=== PATIENT | male | born 1950 | race Caucasian/White ===

== ENCOUNTER 2017-08-15 14:15 | Inpatient (IN) | END 2017-08-20 18:13 | disposition home or self-care (01) | DRG 197 ==

== ENCOUNTER 2018-01-14 09:37 | Day surgery (SDC) | END 2018-01-14 14:31 | disposition home or self-care (01) ==

== ENCOUNTER 2018-07-05 02:39 | Inpatient (IN) | payer BC ==
[~2018-07-05] VITALS: Ht 170.2 cm; Wt 78.0 kg
[2018-07-05] VITALS (7 sets, daily range): BP systolic 96–130; BP diastolic 54–63; PULSE 60–96; RESP 17–20; Ht 170.2 cm; Wt 78.0 kg
[~2018-07-05 02:39] MED LIST: ESOMEPRAZOLE; FERROUS SULFATE; GABAPENTIN; LOSA1TAB25 PO; TAMSULOSIN
[2018-07-05] MEDS ORDERED: ACETAMINOPHEN 325 MG TAB PO STA (02:51)
[2018-07-05] MEDS ORDERED: SODIUM CHLORIDE 0.9% 1L BAG IV* STA (02:51)
--- NOTE | 2018-07-05 05:27 | ERD ---
ER Documentation Chief Complaint Chief Complaint bib [id number] c/o fever/body aches/chills x 1 day, also c/o painful urination HPI 60-minute male brought in by rescue fevers body aches and chills for 1 day. Also complains of painful urination for the past 3 days. Also complains of mild flank pain times 2 days. Pain is mild to moderate intensity. Alternating fevers and chills. Mild nausea but no vomiting. No other current complaints. ROS All systems reviewed and are negative except as per history of present illness. Medications Home Meds Reported Medications [Tamsulosin] No Conflict Check 01/14/18 [Esomeprazole] No Conflict Check 01/14/18 [Ferrous Sulfate] No Conflict Check 01/14/18 [Gabapentin] No Conflict Check 01/14/18 Losartan-Hydrochlorothiazide (Losartan-HCTZ) 100-25 Mg Tab, 1 TAB PO DAILY, TAB 08/15/17 Allergies Allergies: Coded Allergies: No Known Allergy (Unverified , 08/15/17) PMhx/Soc History of Surgery: No Anesthesia Reaction: No Hx Neurological Disorder: Yes (NEUROPATHY) Hx Respiratory Disorders: No Hx Cardiac Disorders: Yes (HTN) Hx Psychiatric Problems: No Hx Miscellaneous Medical Probl: No Hx Alcohol Use: No Hx Substance Use: No Hx Tobacco Use: No Physical Exam Vitals Vital Signs Date Temp Pulse Resp B/P (MAP) Pulse Ox O2 O2 Flow FiO2 Time Delivery Rate 07/05/18 100.1 74 19 107/52 93 Nasal 4.0 04:17 (70) Cannula 07/05/18 100.1 110 32 127/59 93 Nasal 4.0 03:25 (81) Cannula 07/05/18 Nasal 2 03:25 Cannula 07/05/18 100.1 03:20 07/05/18 102.2 113 20 91/52 (65) 94 02:48 Physical Exam Const: No acute distress Head: Atraumatic Eyes: Normal Conjunctiva ENT: Normal External Ears, Nose and Mouth. Neck: Full range of motion. No meningismus. Resp: Clear to auscultation bilaterally Cardio: Regular rate and rhythm, no murmurs Abd: Soft, non tender, non distended. Normal bowel sounds Skin: No petechiae or rashes Back: No midline or flank tenderness Ext: No cyanosis, or edema Neur: Awake and alert Psych: Normal Mood and Affect Result Diagram: 07/05/1830907/05/18 0310 Results 24 hrs Laboratory Tests Test 07/05/18 03:10 07/05/18 03:17 07/05/18 04:40 White Blood Count 16.0 10^3/ul Red Blood Count 4.77 10^6/ul Hemoglobin 14.6 g/dl Hematocrit 41.7 % Mean Corpuscular Volume 87.4 fl Mean Corpuscular Hemoglobin 30.6 pg Mean Corpuscular 35.0 g/dl Hemoglobin Concent Red Cell Distribution Width 11.4 % Platelet Count 198 10^3/UL Mean Platelet Volume 10.6 fl Immature Granulocytes % 1.000 % Neutrophils % 82.1 % Lymphocytes % 11.7 % Monocytes % 4.7 % Eosinophils % 0.1 % Basophils % 0.4 % Nucleated Red Blood Cells % 0.0 /100WBC Immature Granulocytes # 0.160 10^3/ul Neutrophils # 13.2 10^3/ul Lymphocytes # 1.9 10^3/ul Monocytes # 0.8 10^3/ul Eosinophils # 0.0 10^3/ul Basophils # 0.1 10^3/ul Nucleated Red Blood Cells # 0.0 10^3/ul Prothrombin Time 14.4 Sec Prothrombin Time Ratio 1.1 INR International 1.11 Normalized Ratio Activated Partial Thromboplast 33.0 Sec Time Sodium Level 136 mmol/L Potassium Level 3.3 mmol/L Chloride Level 98 mmol/L Carbon Dioxide Level 24 mmol/L Anion Gap 14 Blood Urea Nitrogen 15 mg/dl Creatinine 1.35 mg/dl Est Glomerular Filtrat 53 mL/min Rate mL/min Glucose Level 139 mg/dl Calcium Level 9.3 mg/dl Total Bilirubin 1.0 mg/dl Direct Bilirubin 0.00 mg/dl Indirect Bilirubin 1.0 mg/dl Aspartate Amino 30 IU/L Transf (AST/SGOT) Alanine 13 IU/L Aminotransferase (ALT/SGPT) Alkaline Phosphatase 124 IU/L Troponin I < 0.012 ng/ml Total Protein 8.6 g/dl Albumin 4.5 g/dl Globulin 4.10 g/dl Albumin/Globulin Ratio 1.09 POC Venous Lactate 1.9 mmol/L Urine Color EYAL Urine Clarity CLOUDY Urine pH 6.0 Urine Specific [place] 1.016 Urine Ketones NEGATIVE mg/dL Urine Nitrite NEGATIVE mg/dL Urine Bilirubin NEGATIVE mg/dL Urine Urobilinogen 2+ mg/dL Urine Leukocyte Esterase 2+ Kristina/ul Urine Microscopic RBC 12 /HPF Urine Microscopic WBC 143 /HPF Urine Bacteria MANY /HPF Urine Mucus FEW /HPF Urine Hemoglobin 2+ mg/dL Urine Glucose NEGATIVE mg/dL Urine Total Protein 2+ mg/dl Current Medications Medications Dose Sig/Ankita Start Time Status Last (Trade) Ordered Route PRN Stop Time Admin Dose Reason Admin Sodium 2,330 ml BOLUS OVER 2 07/05/18 DC 07/05/18 Chloride HOURS STAT 02:51 03:20 (NS) IV* 07/05/18 02:53 650 mg ONCE STAT 07/05/18 DC 07/05/18 Acetaminophen PO 02:51 03:20 (Tylenol 07/05/18 02:53 Tab) Ceftriaxone 50 ml @ ONCE ONCE 07/05/18 Sodium 100 mls/hr IVPB 05:30 07/05/18 05:59 Procedures/MDM EKG: Rate/Rhythm: [Normal Sinus Rhythm] QRS, ST, T-waves: [No changes consistent w/ acute ischemia] Impression: [No evidence of ischemia or arrhythmia] Chest X-ray 1V Interpreted by me: Soft Tissue: No acute abnormalities Bones: No acute abnormalities Mediastinum/Cardiac Silhouette/Lungs: [No acute abnormalities] Medical decision makin 8-year-old female with multiple early pyelonephritis. At this point patient will be admitted to Dr. Diehl. Early sepsis cannot be excluded. Initial lactic acid was negative, however patient was given 30/kg fluid bolus and started on broad-spectrum antibiotics Departure Diagnosis: Primary Impression: Pyelonephritis Condition: Serious OLGA FRY Jul 05, 2018 05:27
[2018-07-05] MEDS ORDERED: CEFTRIAXONE 1 GM/50 ML (PMX) 50 ML IVPB ONE (05:30)
[2018-07-05] MEDS ORDERED: NACL 0.9% 3 ML SYG IV SCH (06:00)
[2018-07-05] MEDS ORDERED: BISACODYL (EC) 5 MG TAB PO PRN (06:00)
[2018-07-05] MEDS ORDERED: ONDANSETRON 4 MG INJ IV PRN (06:00)
[2018-07-05] MEDS ORDERED: DOCUSATE SODIUM 100 MG CAP PO PRN (06:00)
[2018-07-05] MEDS ORDERED: TAMS0.4C2 PO (07:22)
[2018-07-05] MEDS ORDERED: RANI300T PO (07:22)
[2018-07-05] MEDS ORDERED: GABA300C16 PO (07:22)
[2018-07-05] MEDS ORDERED: OMEP40CA6 PO (07:22)
[2018-07-05] MEDS: ACETAMINOPHEN 325 MG TAB PO PRN ×2 (12:36→20:25)
--- NOTE | 2018-07-05 19:03 | HP ---
DATE OF ADMISSION: 07/05/2018 TIME OF EVALUATION: About 9:00 a.m. PRESENTING COMPLAINT: Fever, generalized ache and dysuria. HISTORY OF PRESENTING COMPLAINT: The patient is not a very good historian and so history is unclear at this time. This patient presents with generalized aches, fevers and some dysuria. Denies hematur ia. Denies nausea, vomiting. No hematemesis. There has been no passing out episodes. No headache, no extremity swelling. PAST MEDICAL HISTORY: Positive for: 1. High blood pressure. 2. GERD. 3. Chronic neuropathy. 4. BPH. 5. History of lung mass that pathology in this hospital showed that it was coccidioidomycosis infect ion; however, it is unclear if patient was treated for it. ALLERGY HISTORY: HE HAS KNOWN DRUG ALLERGIES. SOCIAL HISTORY: The patient does drink alcohol occasionally. Denies tobacco or illicit drug use. FAMILY HISTORY: Noncontributory. REVIEW OF SYSTEMS: A 12-point review of system was done. Pertinent findings are as noted in the HPI . PHYSICAL EXAMINATION VITAL SIGNS: Temperature maximum has been 102.2 on arrival, pulse when he came he was tachycardic, b ut at the time of review, tachycardia resolved, blood pressure 101/49 and respiratory rate 18, satura tions 95% on room air. GENERAL: A 68-year-old male currently still ill-looking, but sleeping comfortably, in no distress. HEENT: Head is normocephalic. Pupils are equal, round and reactive. Mucous membranes are slightly dry. NECK: Supple without adenopathy or JVD. CHEST: Clear without wheezing or crackles. CARDIOVASCULAR: S1 and S2. No added sounds or murmurs. ABDOMEN: Soft, nontender, normoactive bowel sounds. There is no flank tenderness. SKIN: Devoid of rash or jaundice. EXTREMITIES: Negative for edema. NEUROLOGIC: Negative for focal deficits. LABORATORY VALUES: Urinalysis was done today with many bacteria, 3 red blood cells, 2+ esterase, harry udy urine. He has a leukocytosis of 16,000. Coag profile was unremarkable. His creatinine is high at 1.35. Alkaline phosphatase is entirely elevated. Potassium is low at 3.3. Lactic acid is normal though. IMAGING: He had a chest x-ray that did not show any acute pulmonary changes, but he did have a 2.3 c m pulmonary nodule that was compared to a PET scan that was done 06/30/2018 and did show activity. T his is notable again with CT of the abdomen. Also noted on the CT was bibasilar fibrosis and atelect asis and fatty liver. ASSESSMENT: A 68-year-old male who is being admitted for after he presented with fever and gen eralized aches and dysuria. 1. Sepsis secondary to #2. 2. Urinary tract infection without pyelonephritis. 3. Acute renal insufficiency. 4. Hypertension with borderline hypotension secondary to sepsis. 5. Chronic neuropathy. 6. Gastroesophageal reflux disease. 7. Benign prostatic hypertrophy. 8. Constipation. 9. Left lower lobe mass which has reduced in size as compared to CT scan of the chest that was done in 07/2017, which at that time pathology had confirmed presence of coccidioidomycosis infection. It is unclear if patient was treated. This may represent a recurrence or incomplete treatment. PLAN: We have to get pulmonary and infectious disease consultation again for his lung mass treatment . In the interim though, we will empiric therapy for his sepsis and UTI with ceftriaxone. Follow up cultures. Continue IV fluids for renal failure. Hold on home antihypertensives for now. We will r esume as indicated. Continue to trend labs. Follow up urine and blood cultures. Further interventi ons will depend on his clinical course. For prophylaxis, he will be started on Lovenox and PPI thera py. Dictated By: ECHO LOPEZ MD BA/NTS Conf#: [id number] DID#: [id number] CC: AHSAN OH MD;*EndCC*
[2018-07-05] MEDS ORDERED: SUMATRIPTAN 6 MG/0.5 ML INJ SC ONE (23:00)
[2018-07-06] VITALS (12 sets, daily range): BP systolic 109–144; BP diastolic 61–67; PULSE 48–63; RESP 16–20
[2018-07-06] MEDS: CEFTRIAXONE 2 GM/50 ML (PMX) 50 ML IVPB SCH (04:29)
[2018-07-06] MEDS: DOCUSATE SODIUM 100 MG CAP PO SCH ×2 (05:57→17:44)
[2018-07-06] MEDS: PANTOPRAZOLE (EC) 40 MG TAB PO SCH (05:57)
[2018-07-06] MEDS: ENOXAPARIN 40 MG/0.4 ML SYG SC SCH (09:38)
[2018-07-06] MEDS ORDERED: POTASSIUM CHLORIDE (SR) 20 MEQ TAB PO STA (12:28)
[2018-07-06] MEDS: FLUCONAZOLE 200 MG TAB PO SCH ×2 (14:01→22:49)
--- NOTE | 2018-07-06 14:07 | CONS ---
DATE OF ADMISSION: 07/06/2018 DATE OF CONSULTATION: 07/06/2018 TYPE OF CONSULTATION: Infectious disease. REASON FOR CONSULTATION: Antibiotic management. HISTORY OF PRESENT ILLNESS: Marvin Bashir is a 68-year-old male who was brought in with fe evette, body aches, chills for 1 day and pain on urination. PAST MEDICAL HISTORY: His past problems include: 1. Hypertension. 2. Peripheral neuropathy. Acutely, the patient complains of pain on urination, 3 days prior to admission with mid flank pain x2 days. The pain is mild to moderately intense, alternating with fever and chills. He has mild nause a and vomiting. No other current complaints. PAST MEDICAL HISTORY: As outlined. FAMILY HISTORY: Noncontributory. SOCIAL HISTORY: Does not smoke, drink or abuse drugs. LABORATORY DATA: On admission, his white count of 16,000, H and H of 14.6/41.7, platelet count of 19 8,000. BUN and creatinine 15/1.35. Random glucose of 139. His potassium is 3.31. PHYSICAL EXAMINATION: GENERAL: This is a well-developed, well-nourished male who is alert, responsive, in no acute distres s. VITAL SIGNS: Stable. His temperature was up to 102.2. SKIN: Without generalized rash. HEENT: Within normal limits. NECK: Supple. LYMPH NODES: None palpable. CHEST: Decreased breath sounds at the bases. HEART: Without murmur or gallop. ABDOMEN: Soft, nontender, without organosplenomegaly or masses. He has no flank tenderness. RECTAL AND GENITAL: Deferred. NEUROLOGIC: No focal neurological abnormality. His urine shows 2+ leukocyte esterase, 142 white tal ls per high powered field. The patient was placed on ceftriaxone. Chest x-ray showed no acute abnormalities. Patient was diagn osed with pyelonephritis. His urine shows gram-negative rods at 24 hours. The blood cultures are ne gative. HOSPITAL COURSE: CT scan of the abdomen and pelvis shows a 3.1 x 2.6 cm in superior left lower lobe. Positive mass. Nonspecific mild mesenteric stranding of the anterior lateral right mid to lower ab domen. Decreased hepatic attenuations likely on the basis of hepatic steatosis, bibasilar fibrosis a nd dependent subsegmental atelectasis. Patient noted to have hypertension, GERD, chronic neuropathy, BPH, history of lung mass as the pathology in this hospital showed coccidioidomycosis infection. It is unclear if the patient was treated for this. Patient is septic secondary to his urinary tract in fection, but I will follow up the cocci infection. I would repeat cocci serology and start him back on fluconazole. Cocci antibodies were ordered. Dictated By: TYLER VO MD, JD/NTS Conf#: [id number] DID#: [id number] CC: AHSAN HO MD;*EndCC*
--- NOTE | 2018-07-06 15:58 | PN ---
Date/Time of Note Date/Time of Note DATE: 07/06/18 TIME: 15:46 Assessment/Plan VTE Prophylaxis Risk score (from Ns)>0 risk: 4 SCD applied (from Ns): Yes Pharmacological prophylaxis: LMWH Lines/Catheters IV Catheter Type (from Nrs): Saline Lock Assessment/Plan Assessment/Plan A 68-year-old male who is being admitted for management after he presented with fever and generalized aches and dysuria. 1. Sepsis secondary to #2: -improving 2. Urinary tract infection without pyelonephritis. -cultures growing GNR 3. Acute renal insufficiency. -improved, continue hydration 4. Hypertension with borderline hypotension secondary to sepsis. -continue to hold home meds for now -PRN hydralzine only 5. Left lower lobe mass -has reduced in size as compared to CT scan of the chest that was done in 07/2017, -2018 pathology had confirmed presence of coccidioidomycosis infection. -son thinks patient was treated, but he's not sure -ID and pulm consult 6. Gastroesophageal reflux disease. -continue home gail 7. Benign prostatic hypertrophy. -home meds 8. Constipation. -stool softeners and miralax 9. Chronic neuropathy. -continue home gabapentin 10. Bradycardia -asymptomatic -monitor on tele -complete ACS r/o -2D echo -avoid AV madhuri blocking agents -EKG 11. Hypokalemia -replete, chck mag levels as well 12. Dyslipidemia -low HDL and mildly high total cholesterol -statin tx, low chol, low fat diet 13. cough, Bibasilar pulm fibrosis on CT abd - will repeat chest CT with IV contrast 14. Fatty liver PLAN: continue abx, ID consult Pulm consult remain on tele for now 2/2 bradycardia, 2D echo Result Diagram: 07/06/18 0522 07/06/18 0522 Results 24hrs Laboratory Tests Test 07/06/18 05:22 White Blood Count 14.1 H Red Blood Count 3.98 L Hemoglobin 12.3 L Hematocrit 35.5 L Mean Corpuscular Volume 89.2 Mean Corpuscular Hemoglobin 30.9 Mean Corpuscular Hemoglobin Concent 34.6 Red Cell Distribution Width 11.7 Platelet Count 158 # Mean Platelet Volume 10.8 H Immature Granulocytes % 1.100 H Neutrophils % 77.8 H Lymphocytes % 8.0 L Monocytes % 10.9 Eosinophils % 1.8 Basophils % 0.4 Nucleated Red Blood Cells % 0.0 Immature Granulocytes # 0.160 H Neutrophils # 10.9 H Lymphocytes # 1.1 Monocytes # 1.5 H Eosinophils # 0.3 Basophils # 0.1 Nucleated Red Blood Cells # 0.0 Sodium Level 140 Potassium Level 3.3 L Chloride Level 103 Carbon Dioxide Level 26 Anion Gap 11 Blood Urea Nitrogen 12 Creatinine 0.73 Est Glomerular Filtrat Rate mL/min > 60 Glucose Level 118 Hemoglobin A1c 5.5 Calcium Level 8.4 Magnesium Level 2.2 Total Bilirubin 0.1 L Direct Bilirubin 0.00 Indirect Bilirubin 0.1 Aspartate Amino Transf (AST/SGOT) 24 Alanine Aminotransferase (ALT/SGPT) 24 Alkaline Phosphatase 88 Total Protein 6.8 # Albumin 3.2 #L Globulin 3.60 H Albumin/Globulin Ratio 0.88 Triglycerides Level 152 H Cholesterol Level 110 LDL Cholesterol, Calculated 61 HDL Cholesterol 19 L Cholesterol/HDL Ratio 5.7 Thyroid Stimulating Hormone (TSH) 2.470 Subjective 24 Hr Interval Summary Free Text/Dictation feels better but still very lethargic c/o productive cough x 2 weeks Exam/Review of Systems Vital Signs Vitals Vital Signs Date Temp Pulse Resp B/P (MAP) Pulse Ox O2 O2 Flow FiO2 Time Delivery Rate 07/06/18 56 12:01 07/06/18 98.9 16 109/62 94 11:49 (78) 07/06/18 Nasal 2.0 07:58 Cannula 07/06/18 27 02:14 Intake and Output 07/05/18 07/05/18 07/06/18 1515:00 23:00 07:00 IntakeIntake Total 750 ml 250 ml OutputOutput Total 800 ml BalanceBalance 750 ml -550 ml Medications Medications Current Medications IV Flush (NS 3 ml) 3 ml PER PROTOCOL IV ; Start 07/05/18 at 06:00 Ondansetron HCl (Zofran Inj) 4 mg Q6H PRN IV NAUSEA AND/OR VOMITING Last administered on 07/05/18at 12:48; Admin Dose 4 MG; Start 07/05/18 at 06:00 Acetaminophen (Tylenol Tab) 650 mg Q6H PRN PO PAIN LEVEL 1-3 OR FEVER Last administered on 07/05/18at 20:25; Admin Dose 650 MG; Start 07/05/18 at 06:00 Bisacodyl (Dulcolax) 5 mg DAILY PRN PO CONSTIPATION; Start 07/05/18 at 06:00 Ceftriaxone Sodium 50 ml @ 100 mls/hr Q24H IVPB Last administered on 07/06/18at 04:29; Admin Dose 100 MLS/HR; Start 07/06/18 at 04:00 Influenza Virus Vaccine Quadrival (Fluzone) 0.5 ml ONCE ONCE IM* ; Start 07/08/18 at 10:00; Stop 07/08/18 at 10:01 Docusate Sodium (Colace) 100 mg Q12H PO Last administered on 07/06/18at 05:57; Admin Dose 100 MG; Start 07/06/18 at 06:00 Enoxaparin Sodium (Lovenox) 40 mg DAILY SC Last administered on 07/06/18at 09:38; Admin Dose 40 MG; Start 07/06/18 at 09:00 Pantoprazole (Protonix Tab) 40 mg DAILY@06 PO Last administered on 07/06/18at 05:57; Admin Dose 40 MG; Start 07/06/18 at 06:00 Fluconazole (Diflucan) 400 mg BID PO Last administered on 07/06/18at 14:01; Admin Dose 400 MG; Start 07/06/18 at 14:00 ECHO LOPEZ Jul 06, 2018 15:56
[2018-07-06] MEDS ORDERED: SOD CHLORIDE 0.9% 1,000 ML IV SCH (16:00)
[2018-07-06] MEDS: ACETAMINOPHEN 325 MG TAB PO PRN (19:39)
--- NOTE | 2018-07-06 19:55 | RADRPT ---
Vent Rate: 58 bpm RR Interval: 0 msec AL Interval: 152 msec QRS Duration: 96 msec QT Interval: 424 msec QTC Interval: 416 msec P-R-T [place]: 40 - 4 - 35 degrees Sinus bradycardia Otherwise normal ECG Electronically Signed By: Kavon Cook [id number]
[2018-07-06] MEDS ORDERED: GUAIFENESIN/DM 5ML CUP PO PRN (23:00)
[2018-07-07] VITALS (10 sets, daily range): BP systolic 137–163; BP diastolic 66–73; PULSE 51–79; RESP 16–17
[2018-07-07] MEDS: CEFTRIAXONE 2 GM/50 ML (PMX) 50 ML IVPB SCH (04:40)
[2018-07-07] MEDS: DOCUSATE SODIUM 100 MG CAP PO SCH (06:09)
[2018-07-07] MEDS: PANTOPRAZOLE (EC) 40 MG TAB PO SCH (06:09)
[2018-07-07] MEDS ORDERED: IOHEXOL 300MG/ML 150 ML BTL ONE (07:45)
[2018-07-07] MEDS ORDERED: SOD CHLORIDE 0.9% 100 ML ONE (07:45)
[2018-07-07] MEDS: FLUCONAZOLE 200 MG TAB PO SCH (09:39)
[2018-07-07] MEDS: ENOXAPARIN 40 MG/0.4 ML SYG SC SCH (09:47)
--- NOTE | 2018-07-07 12:29 | CONS ---
DATE OF ADMISSION: 07/06/2018 DATE OF CONSULTATION: TYPE OF CONSULTATION: Pulmonary. REASON FOR CONSULTATION: Cough, shortness of breath. Thank you, Dr. Gardner, for this consultation. HISTORY OF PRESENT ILLNESS: This is a pleasant 68-year-old gentleman with history of lung mass PET p ositive treated for coccidioidomycosis came in with a 2-week history of fever, chills, cough. No hem optysis, hematemesis. No nausea, no vomiting, but did have significant leukocytosis. Chest x-ray de monstrating a 2.3 cm left lower lobe nodule with PET positive activity. CT abdomen and pelvis was al so performed which demonstrated a left lower lobe PET positive lesion, bibasilar fibrosis with subseg mental atelectasis. PAST MEDICAL HISTORY: As above. MEDICATIONS: Per chart. SOCIAL HISTORY: Nonsmoker, no alcohol, no history of drug use. FAMILY HISTORY: Noncontributory. REVIEW OF SYSTEMS: A 12-point review of systems was negative other than that mentioned above. PHYSICAL EXAMINATION: GENERAL: Well-nourished, well-developed gentleman, comfortable at rest, in no acute distress. VITAL SIGNS: Currently afebrile, temperature 98, pulse is 62, blood pressure 149/63, O2 saturation 9 6% on 2 liters nasal cannula. NECK: Supple. No JVD or lymphadenopathy. CARDIAC: S1, S2. No added sounds or murmurs. CHEST: Diminished air entry bilaterally. ABDOMEN: Soft, nontender. No guarding or rebound. EXTREMITIES: No cyanosis, clubbing or edema. NEUROLOGIC: Generalized weakness. No focal deficits. LABORATORY DATA: White count initially 16 then 8.4, hemoglobin 12.1, platelets within normal limits. IMPRESSION AND PLAN: 1. Likely resolving tracheobronchitis. 2. History of PET positive nodule. Workup for malignancy continues. 3. History of gastroesophageal reflux disease. The patient can: 1. Likely continue current antibiotics. We will transition to p.o. tomorrow. 2. Continue antibiotics for Escherichia coli urinary tract infection. 3. Anticipate discharge and follow up with me in the office with further evaluation of PET scan and lung nodule. Dictated By: JENI COWART MD SV/BRIDGER Conf#: [id number] DID#: [id number] CC: AHSAN HO MD;*[facility]*
--- NOTE | 2018-07-07 14:00 | CONS ---
Date/Time of Note Date/Time of Note DATE: 07/07/18 TIME: 14:00 Assessment/Plan Assessment/Plan Hospital Course No acute events per report patient is alert feels good denies pain no fevers overnight he has ongoing nausea, no vomiting WBC 8.4 platelets 181 neutrophils 69.4 BUN 13 creatinine 0.75 Antimicrobials Rocephin fluconazole Urine culture on admission grew E. coli CT abdomen and pelvis revealed 3.1 x 2.6 cm superior left lower lobe PET positive mass. Bibasilar fibrosis and dependent subsegmental atelectasis. Physical examination: Well-developed elderly man who is alert in no distress. Head atraumatic normocephalic sclera nonicteric neck is supple chest rise symmetrical breath sounds clear diminished bases. Heart: S1-S2 abdomen soft bowel sounds present extremities without cyanosis Assessment: 1. Sepsis, present on admission 2. Lung mass, reduced in size, patient had biopsy on previous admission that revealed no malignancy but questionable cocci 3. Urinary tract infection 4. Hypertension Plan: Patient is stable, pulmonary on case, he is on high-dose fluconazole, we can change Rocephin to ciprofloxacin or Levaquin. Await for final workup Result Diagram: 07/07/18 0421 07/07/18 0421 Results 24hrs Laboratory Tests Test 07/06/18 16:16 07/07/18 04:21 Magnesium Level 2.0 1.9 Creatine Kinase 75 62 Creatine Kinase Index 0.5 0.6 Creatinine Kinase MB (Mass) 0.41 0.37 Troponin I < 0.012 < 0.012 White Blood Count 8.4 # Red Blood Count 3.92 L Hemoglobin 12.1 L Hematocrit 34.7 L Mean Corpuscular Volume 88.5 Mean Corpuscular Hemoglobin 30.9 Mean Corpuscular Hemoglobin Concent 34.9 Red Cell Distribution Width 11.9 Platelet Count 181 Mean Platelet Volume 10.4 Immature Granulocytes % 0.900 H Neutrophils % 69.4 Lymphocytes % 12.1 L Monocytes % 13.5 H Eosinophils % 3.6 Basophils % 0.5 Nucleated Red Blood Cells % 0.0 Immature Granulocytes # 0.080 H Neutrophils # 5.9 Lymphocytes # 1.0 Monocytes # 1.1 H Eosinophils # 0.3 Basophils # 0.0 Nucleated Red Blood Cells # 0.0 Sodium Level 141 Potassium Level 3.6 Chloride Level 105 Carbon Dioxide Level 24 Anion Gap 12 Blood Urea Nitrogen 13 Creatinine 0.75 Est Glomerular Filtrat Rate mL/min > 60 Glucose Level 104 Calcium Level 8.4 Phosphorus Level 3.0 Consultation Date/Type/Reason Admit Date/Time Jul 06, 2018 at 09:43 Initial Consult Date Type of Consult id Exam/Review of Systems Vital Signs Vitals Vital Signs Date Temp Pulse Resp B/P (MAP) Pulse Ox O2 O2 Flow FiO2 Time Delivery Rate 07/07/18 56 12:34 07/07/18 98.3 16 143/68 98 11:38 (93) 07/07/18 Nasal 2.0 09:57 Cannula 07/06/18 27 02:14 Intake and Output 07/06/18 07/06/18 07/07/18 1515:00 23:00 07:00 IntakeIntake Total 04433 ml 450 ml OutputOutput Total 800 ml 1000 ml BalanceBalance 31599 ml -550 ml Medications Medications Current Medications IV Flush (NS 3 ml) 3 ml PER PROTOCOL IV ; Start 07/05/18 at 06:00 Ondansetron HCl (Zofran Inj) 4 mg Q6H PRN IV NAUSEA AND/OR VOMITING Last administered on 07/05/18at 12:48; Admin Dose 4 MG; Start 07/05/18 at 06:00 Acetaminophen (Tylenol Tab) 650 mg Q6H PRN PO PAIN LEVEL 1-3 OR FEVER Last administered on 07/06/18at 19:39; Admin Dose 650 MG; Start 07/05/18 at 06:00 Bisacodyl (Dulcolax) 5 mg DAILY PRN PO CONSTIPATION; Start 07/05/18 at 06:00 Ceftriaxone Sodium 50 ml @ 100 mls/hr Q24H IVPB Last administered on 07/07/18at 04:40; Admin Dose 100 MLS/HR; Start 07/06/18 at 04:00 Influenza Virus Vaccine Quadrival (Fluzone) 0.5 ml ONCE ONCE IM* ; Start 07/08/18 at 10:00; Stop 07/08/18 at 10:01 Docusate Sodium (Colace) 100 mg Q12H PO Last administered on 07/07/18at 06:09; Admin Dose 100 MG; Start 07/06/18 at 06:00 Enoxaparin Sodium (Lovenox) 40 mg DAILY SC Last administered on 07/07/18 09:47; Admin Dose 40 MG; Start 07/06/18 at 09:00 Pantoprazole (Protonix Tab) 40 mg DAILY@06 PO Last administered on 07/07/18at 06:09; Admin Dose 40 MG; Start 07/06/18 at 06:00 Fluconazole (Diflucan) 400 mg BID PO Last administered on 07/07/18at 09:39; Admin Dose 400 MG; Start 07/06/18 at 14:00 Guaifenesin/ Dextromethorphan (Robitussin Dm Liquid Cup) 5 ml Q4H PRN PO cough Last administered on 07/07/18at 06:11; Admin Dose 5 ML; Start 07/06/18 at 23:00 LESLIE GIL NP Jul 07, 2018 14:00
[2018-07-07] MEDS ORDERED: CIPR500T4 PO (16:00)
[2018-07-07] MEDS ORDERED: FLUC200T PO (16:00)
[2018-07-07] MEDS ORDERED: hydrALAzine 20 MG INJ IV ONE (16:00)
--- NOTE | 2018-07-07 16:03 | PDOCDIS ---
Discharge Instructions DIAGNOSIS Discharge Diagnosis sepsis with UTI Cocci lung infection with lung mass . CONDITION [id number] Patient Condition: [id number] Stable ACTIVITY: [id number] Activity Restrictions: [id number] Slowly Increase Activity Rest between Activity FOLLOW UP/APPOINTMENTS Follow-up Plan f/u with Dr carter at your scheduled appointment ECHO LOPEZ Jul 07, 2018 16:03
--- NOTE | 2018-07-07 17:04 | DS ---
DATE OF ADMISSION: 07/06/2018 DATE OF DISCHARGE: 07/07/2018 ADMISSION DIAGNOSES: 1. Sepsis secondary to #2. 2. Urinary tract infection without pyelonephritis. 3. Acute renal insufficiency: Now resolved. 4. Hypertension, status post borderline hypotension secondary to sepsis. 5. Chronic neuropathy. 6. Gastroesophageal reflux disease. 7. Benign prostatic hypertrophy, chronic. 8. Constipation: Improved. 9. Left lower lobe mass secondary to untreated cocci infection. CONSULTS ON THE CASE: 1. Awais Sutherland MD, for pulmonary. 2. Valentin Arthur MD, for infectious disease. INTERVENTIONS: CT of the abdomen and pelvis that showed 3.1 x 2.6 cm left lower lobe PET positive mass, mild mesenteric stranding, fatty liver and bibasilar fibrosis. SHORT HOSPITALIZATION COURSE: Full details are available in chart for review. In summary, this 68-year-old male who presented with abdominal pain, fever, nausea and vomiting, was found to be septic from urinary tract infection. Of note is that the patient had been seen in our facility back in 07/2017 and at that time was diagnosed with a lung mass by CT and undergone a CT-guided biopsy. Apparently, pathology from that biopsy in 2018 had shown cocci infection. The patient at that time was treated with steroids, but for some reason, he was not treated for the cocci infection. At this time, the mass is still present but smaller. Apparently, he has been undergoing a workup as outpatient for same mass and he just recently had a PET scan about a week ago. Path report here shows cocci. Infectious disease consult was obtained. The patient is started on fluconazole 400 b.i.d. for at least 6 weeks. Urine culture grew out E. coli sensitive to almost all the antibiotics except ampicillin, cefazolin. He has been discharged to complete his treatment for his UTI outpatient with at least 6 weeks of antifungal treatment which may be continued or discontinued with discussion of pulmonary doctor and infectious disease with whom he already has appointments to follow up for outpatient. His comorbidities were also managed as per his medical records. Please review his chart for details. At this time, patient has been evaluated by myself and is stable for discharge. DISCHARGE CONDITION: Stable ACTIVITY: As tolerated DISCHARGE MEDS: Please see chart FOLLOW UP: see hospital course Dictated By: ECHO LOPEZ MD BA/NTS Conf#: [id number] [facility]#: [id number] CC: AHSAN HO MD; AWAIS SUTHERLAND MD;*EndCC* MTDD
[2018-07-08] MEDS ORDERED: LEVOFLOXACIN 500 MG TAB PO SCH (06:00)
[2018-07-08] MEDS ORDERED: HYDROCHLOROTHIAZIDE 25 MG TAB PO SCH (09:00)
[2018-07-08] MEDS ORDERED: LOSARTAN 50 MG TAB PO SCH (09:00)
--- NOTE | 2018-07-13 15:10 | RADRPT ---
Echocardiogram Report Patient Name: TYLER STARK Gender: Male Date: 1950 Study Date: 07-Jul-2018 Toter: TB Location: 519 Ref. Physician: ECHO LOPEZ Quality: Adequate Procedures: Transthoracic echocardiogram with complete 2D, M-Mode, and doppler examination. Indications: Bradycardia. 2D/M Mode Doppler Measurement Value Normal Ranges Measurement Value Normal Ranges LVIDd 2D 4.7 3.5 - 5.6 cm AV Mean Jaspal 1.3 m/sec LVIDs 2D 3.3 2.1 - 4.1 cm AV Mean PG 8.0 mmHg LVPWd 2D 0.9 0.6 - 1.1 cm AV Peak Jaspal 1.9 m/sec IVSd 2D 0.9 0.6 - 1.1 cm AV Peak PG 15.0 mmHg AoR Diam 2D 3.5 2.0 - 3.7 cm AV VTI 43.5 cm LA/Ao 2D 1 0 - 1 LVOT Mean Jaspal 0.7 m/sec EF 2D 55.0 50.0 - 65.0 % LVOT Mean PG 2.0 mmHg LA Dimen 2D 3.5 2.3 - 4.0 cm LVOT Peak Jaspal 1.0 m/sec IVC Diam 2.2 1.2 - 2.0 LVOT Peak PG 4.0 mmHg MV E Peak Jaspal 0.9 m/sec MV A Peak Jaspal 0.9 m/sec MV E/A 1.0 MV PHT 77.0 msec MV Decel Time 264 msec MV Decel [place] 3 MV E/A 1.0 MV PHT 77.0 msec MVA PHT 2.9 cm2 TAPSE 2.2 cm TR Peak Jaspal 1.9 m/sec TR Peak PG 14.0 mmHg RVSP 17.0 mmHg RA Pressure 3.0 Findings Left Ventricle: Normal left ventricular systolic function. Normal left ventricular cavity size. Normal left ventricular wall thickness. Ejection fraction is visually estimated at 55 %. Tissue Doppler/Mitral Doppler indices are consistent with impaired relaxation (Stage I diastolic dysfunction). Right Ventricle: Normal right ventricular size. Normal right ventricular systolic function. Left Atrium: The left atrium is normal in size. Right Atrium: The right atrium is normal in size. RA Pressure=3. Mitral Valve: Normal appearance and function of the mitral valve with trace physiologic regurgitation. Mild mitral annular calcification. Aortic Valve: Normal appearance of the aortic valve. No significant aortic stenosis or insufficiency. Tricuspid Valve: Normal appearance of the tricuspid valve. Estimated peak PA systolic pressure 17 mmHg. There is trace to mild tricuspid regurgitation. Pulmonic Valve: Normal pulmonic valve appearance. Pericardium: Normal pericardium with no significant pericardial effusion. Aorta: Normal aortic root. IVC: Dilated IVC with respiratory collapse consistent with elevated right atrial pressure. Conclusions Normal left ventricular systolic function. Grade 1 diastolic dysfunction. Trace mitral regurgitation. Trace tricuspid regurgitation with normal pulmonary pressures. Electronically Signed By: Flor Christian 13-Jul-2018 15:10:26 -0800 Patient Name: TYLER STARK Study Date: 07-Jul-[id number]
== END 2018-07-07 17:45 | disposition home or self-care (01) | DRG 872 ==
LOC: E/R 02:39 → TEL 05:22 → OBSVTOIN 07-06 09:43 → TEL 07-06 19:44
PROVIDERS: ADMIT Family Medicine; ATTEND Family Medicine
DX: A41.9 Sepsis, unspecified organism (principal); N39.0 Urinary tract infection, site not specified; B38.89 Other forms of coccidioidomycosis; J98.11 Atelectasis; N28.9 Disorder of kidney and ureter, unspecified; I10 Essential (primary) hypertension; K21.9 Gastro-esophageal reflux disease without esophagitis; G62.9 Polyneuropathy, unspecified; K59.00 Constipation, unspecified; N40.0 Benign prostatic hyperplasia without lower urinary tract symptoms; R91.8 Other nonspecific abnormal finding of lung field; E87.6 Hypokalemia; E78.5 Hyperlipidemia, unspecified; J40 Bronchitis, not specified as acute or chronic; B96.20 Unspecified Escherichia coli [E. coli] as the cause of diseases classified elsewhere
CPT/HCPCS: 36415; 71045; 71260; 74176; 80048; 80053; 80061; 81001; 82550; 82553; 83036; 83605; 83735; 84100; 84443; 84484; 85025; 85610; 85730; 86635; 87040; 87086; 93005; 93306; G0378; J0360; J0696; J1650; J2405; J3030; J7030; Q9967